=== PATIENT | female | born 1995 | race Caucasian/White ===

== ENCOUNTER 2021-06-21 09:00 | Outpatient (REF) | payer OTHER, SELFPAY ==
[2021-06-21 11:52] LABS: MANUAL DIFF FLAG NO
[2021-06-21 12:01] LABS: Basophils Percent Auto 0.3 % (0-2); Eosinophils Absolute Auto 0.1 X10*3/uL (0.0-0.4); Eosinophils Percent Auto 0.9 % (0-4); Hematocrit 38.4 % (37-47); Hemoglobin 12.8 g/dl (12.0-16.0); Imm Gran Abs Auto 0.01 X10*3/uL (0.00-0.03); Imm Gran Pct Auto 0.1 % (0.0-0.4); Lymphocytes Absolute Auto 1.9 X10*3/uL (1.2-4.9); Mean Corpuscular HGB Conc 33.3 g/dl (31.0-35.0); Mean Corpuscular Volume 86.9 fL (80-98); Mean Platelet Volume 12.9 fL (9.4-12.3); Monocytes Absolute Auto 0.5 X10*3/uL (0.1-1.2); Monocytes Percent Auto 6.5 % (2-11); Neutrophils Absolute Auto 5.4 X10*3/uL (2.0-8.3); Neutrophils Percent Auto 68.2 % (45-73); Platelet Count 113 X10*3/uL (160-400); Red Blood Count 4.42 X10*6/uL (4.20-5.50); Red Cell Distribution Width 12.8 % (11.0-16.0); White Blood Count 7.9 X10*3/uL (4.8-10.8)
[2021-06-21 12:02] LABS: Appearance Urine HAZY; Color Urine YELLOW; Glucose Urine UA NEG (NEG); Leukocyte Esterase Urine 1+ (NEG); Nitrite Urine NEG (NEG); Urine Blood NEG (NEG); Urine Ketones NEG (NEG); Urine Protein NEG (NEG-TRACE)
[2021-06-21 12:31] LABS: Amorphous Sediment Urine 2+ /LPF; Bacteria Urine 2+ /LPF; Squamous Epithelial Cell Urine 3+ /LPF
[2021-06-21 12:32] LABS: RBC Urine 0 /HPF (0); WBC Urine 0 /HPF (0-4)
[2021-06-21 12:35] LABS: TSH reflex Free T4 1.02 uIU/mL (0.32-4.0)
[2021-06-21 12:39] LABS: Alanine Aminotransferase 17 U/L (0-31); Albumin Level 4.1 g/dL (3.5-5.0); Alkaline Phosphatase 38 U/L (39-117); Anion Gap 10 (12-20); Aspartate Amino Transferase 16 U/L (5-31); Bilirubin Total 0.9 mg/dL (0.0-1.0); Blood Urea Nitrogen 7 mg/dL (9-16); Carbon Dioxide 24 mmol/L (22-29); Chloride 107 mmol/L (96-108); Cholesterol 135 mg/dL; Estimated Glomerular Filt Rate > 60; Glucose Fasting 84 mg/dL (60-99); HDL Cholesterol 49 mg/dL; LDL Cholesterol Calculated 74 mg/dl; Potassium 4.3 mmol/L (3.3-5.1); Sodium 137 mmol/L (135-145); Triglycerides 60 mg/dL
== END 2021-06-21 09:01 | disposition home or self-care (01) ==
LOC: HO.WFDLDS 09:00
PROVIDERS: Visit Provider Family Medicine
DX: Z00.00 Encounter for general adult medical examination without abnormal findings (principal)
CPT/HCPCS: 36415; 80053; 80061; 81001; 81003; 84443; 85025

== ENCOUNTER 2022-04-07 06:33 | Outpatient (REF) | payer OTHER, SELFPAY ==
--- NOTE | ~2022-04-07 | XR_ITS ---
EXAMINATION: XR KNEE, RIGHT CLINICAL INFORMATION: Right knee pain COMPARISON: None TECHNIQUE: AP and lateral views of the right knee. FINDINGS: Bones and soft tissues are normal. No fracture or joint effusion. Alignment is anatomic. Joint spaces are well maintained. No abnormal soft tissue calcification. XR/XR knee RT 2V IMPRESSION: Unremarkable right knee radiographs.
== END 2022-04-07 06:34 | disposition home or self-care (01) ==
LOC: HO.XRAY 06:33
PROVIDERS: PCP Hospitalist; Visit Provider Nurse Practitioner Family
DX: M25.561 Pain in right knee (principal)
CPT/HCPCS: 73560

== ENCOUNTER 2022-08-16 08:41 | Outpatient (REF) | payer OTHER, SELFPAY ==
[2022-08-16 11:26] LABS: Hematocrit 40.6 % (37.0-47.0); Hemoglobin 13.3 g/dl (12.0-16.0); Mean Corpuscular HGB Conc 32.8 g/dl (31.0-35.0); Mean Corpuscular Volume 88.5 fL (80.0-98.0); Mean Platelet Volume 12.3 fL (9.4-12.3); Platelet Count 134 X10*3/uL (160-400); Red Blood Count 4.59 X10*6/uL (4.20-5.50); Red Cell Distribution Width 12.3 % (11.0-16.0); White Blood Count 4.7 X10*3/uL (4.8-10.8)
[2022-08-16 12:00] LABS: Alanine Aminotransferase 20 U/L (0-31); Albumin Level 4.6 g/dL (3.5-5.0); Alkaline Phosphatase 92 U/L (39-117); Anion Gap 14 (12-20); Aspartate Amino Transferase 20 U/L (5-31); Bilirubin Total 0.5 mg/dL (0.0-1.0); Blood Urea Nitrogen 12 mg/dL (9-16); Calcium 9.2 mg/dL (8.4-10.2); Carbon Dioxide 26 mmol/L (22-29); Chloride 105 mmol/L (96-108); Cholesterol 136 mg/dL; Estimated Glomerular Filt Rate > 60; Glucose Fasting 85 mg/dL (60-99); HDL Cholesterol 56 mg/dL; LDL Cholesterol Calculated 73 mg/dl; Magnesium 2.1 mg/dL (1.6-2.6); Potassium 4.2 mmol/L (3.3-5.1); Sodium 141 mmol/L (135-145); Total Protein 7.4 g/dL (6.5-8.0); Triglycerides 39 mg/dL
[2022-08-16 12:19] LABS: Folate 12.6 ng/mL (> or = 4.0); Vitamin B12 374 pg/mL (200-900)
[2022-08-23 15:34] LABS: Vitamin D 25-OH, D2 <4 ng/mL; Vitamin D 25-OH, D3 28 ng/mL; Vitamin D 25-OH, Total 28 ng/mL (30-100)
== END 2022-08-16 08:42 | disposition home or self-care (01) ==
LOC: HO.WFDLDS 08:41
PROVIDERS: Visit Provider Hospitalist
DX: Z00.00 Encounter for general adult medical examination without abnormal findings (principal); G43.909 Migraine, unspecified, not intractable, without status migrainosus
CPT/HCPCS: 36415; 80053; 80061; 82306; 82607; 82746; 83735; 85027

== ENCOUNTER 2022-10-03 10:36 | Outpatient (REF) | payer OTHER, SELFPAY ==
[2022-10-03 14:01] LABS: MANUAL DIFF FLAG NO
[2022-10-03 14:11] LABS: Basophils Percent Auto 0.3 % (0-2); Eosinophils Absolute Auto 0.2 X10*3/uL (0.0-0.4); Eosinophils Percent Auto 2.1 % (0-4); Hematocrit 40.3 % (37.0-47.0); Hemoglobin 13.2 g/dl (12.0-16.0); Imm Gran Abs Auto 0.02 X10*3/uL (0.00-0.03); Imm Gran Pct Auto 0.3 % (0.0-0.4); Lymphocytes Absolute Auto 2.1 X10*3/uL (1.2-4.9); Lymphocytes Percent Auto 27.5 % (20-40); Mean Corpuscular HGB Conc 32.8 g/dl (31.0-35.0); Mean Corpuscular Hemoglobin 29.1 pg (27.0-33.0); Mean Corpuscular Volume 88.8 fL (80.0-98.0); Mean Platelet Volume 12.3 fL (9.4-12.3); Monocytes Absolute Auto 0.6 X10*3/uL (0.1-1.2); Monocytes Percent Auto 7.3 % (2-11); Neutrophils Absolute Auto 4.8 x10*3/uL (2.0-8.3); Neutrophils Percent Auto 62.5 % (45-73); Platelet Count 153 X10*3/uL (160-400); Red Blood Count 4.54 X10*6/uL (4.20-5.50); White Blood Count 7.7 X10*3/uL (4.8-10.8)
[2022-10-03 15:03] LABS: Erythrocyte Sedimentation Rate 7 MM/HR (0-20)
[2022-10-03 15:33] LABS: Anion Gap 11 (12-20); Blood Urea Nitrogen 9 mg/dL (9-16); Calcium 9.5 mg/dL (8.4-10.2); Carbon Dioxide 27 mmol/L (22-29); Chloride 106 mmol/L (96-108); Estimated Glomerular Filt Rate > 60; Glucose Random 85 mg/dL (60-115); Potassium 4.1 mmol/L (3.3-5.1); Sodium 140 mmol/L (135-145)
== END 2022-10-03 10:37 | disposition home or self-care (01) ==
LOC: HO.WFDLDS 10:36
PROVIDERS: Visit Provider Family Medicine
DX: Z00.00 Encounter for general adult medical examination without abnormal findings (principal); M25.531 Pain in right wrist
CPT/HCPCS: 36415; 80048; 85025; 85652

== ENCOUNTER 2022-10-07 07:14 | Outpatient (REF) | payer OTHER, SELFPAY ==
--- NOTE | ~2022-10-07 | XR_ITS ---
EXAMINATION: XR WRIST, RIGHT CLINICAL INFORMATION: Pain. COMPARISON: None TECHNIQUE: PA, lateral, and oblique views of the right wrist, together with a dedicated navicular view. FINDINGS: The bones and soft tissues are normal. No fracture. Alignment is anatomic with normal joint spaces. No erosions or abnormal soft tissue calcifications. XR/XR wrist RT 2V IMPRESSION: Normal right wrist.
== END 2022-10-07 07:15 | disposition home or self-care (01) ==
LOC: HO.XRAY 07:14
PROVIDERS: PCP Hospitalist; Visit Provider Family Medicine
DX: M25.531 Pain in right wrist (principal)
CPT/HCPCS: 73100

== ENCOUNTER 2022-12-14 10:30 | Outpatient (RCR) | payer OTHER, SELFPAY ==
--- NOTE | 2022-11-15 14:06 | MHC.OT.EP ---
[address] [phone] Occupational Therapy Plan of Care Patient Name: Jose Antonio Bhatti Date of Evaluation: 11/15/22 Diagnosis: Right De Quervains Pain Location: Right radial wrist, mild at rest Pain Score: 4 Pain Scale Used: Numeric (0 - 10) Aggravating Factors: Lifting, writing, stirring, lifting children Alleviating Factors: Ice, orthosis, ibuprophen helps while being used but no carry over, trying to rest Assessment: 27 yo right hand dominant female presents with persistent right radial wrist and thumb pain over the past eight months. She is the mother of four children, the youngest are two and 10 months, and she carries the majority of homecare for the family. She reports her pain is primarily over the right radial wrist and sometimes into the thumb, wakes her at night and gives her trouble with lifting her children and other objects, as well as writing and using utensils. 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 She has good range and strength, with no current sensory or coodination defitics. She is very receptive and motivated for therapy and will benefit from cont'd services for education on activity modification, joint protection and progression of functional strengthening for minimal pain and optimal daily participation. Frequency and Duration: The patient will be seen 2x/wk for 4 weeks Short Term Goals: Ind w/ AROM exercises Pt to report good follow through w/ trials for varying lifting techniques of smaller children Pt to demo good follow through w/ orthosis wear Ind w/ use of ice and heat appropriately for edema and comfort [facility] Goals: Progress to wrist strengthening exercises and CMC stabilization strengthening Pt to report ease w/ sleeping through modifications of positioning or w/ orthosis wear Pain free w/ moderate daily activities (laundry, dishes, cooking, etc) QuickDASH score <25 pts Treatment Plan: Therapeutic Exercise Therapeutic Activity Home Exercise Program Splinting Patient Education Edema Control ADL Training Ultrasound Iontophoresis Paraffin Fluidotherapy MHP Cold Packs Joint Mobilization Soft Tissue Mobilization Kinesiotaping Ionto w/ dexamethasone for De Quervains Electronically Signed By: Ruma Zapka, OTR/L CHT Please Sign and return to therapist. Thank you once again for your referral.
== END 2022-12-14 11:37 | disposition home or self-care (01) ==
LOC: HO.OT 10:30
PROVIDERS: PCP Hospitalist; Visit Provider Family Medicine
DX: M25.531 Pain in right wrist (principal)
CPT/HCPCS: 97033; 97110; 97140; 97165

== ENCOUNTER 2023-07-11 11:27 | Outpatient (AMB) | payer OTHER, SELFPAY ==
[2023-07-11 11:34] VITALS: BP 108/60; PULSE 80; RESP 13; TEMP 36.4; O2SAT 99; BMI 22.9
--- NOTE | 2023-07-11 11:34 | A.OFFPC_ITS ---
Vital Signs 07/11/23 11:34 Height 5 ft 2 in Weight 125 lb 4 oz BMI 22.9 BP 108/60 Blood Pressure Location Rt brachial Position Sitting Respiration 13 Pulse 80 Pulse Source Pulse Oximeter Temp 97.6 F Temp Source Temporal Artery Scan Pulse Oximetry (%) 99 Oxygen Delivery Method Room Air Intake Visit Reasons: Bump On Right Wrist Intake Note: Patient states that a year and a half ago it was just a painful hand at first but then the bump started growing. Patient states that she went Occupational Therapy and her hand started feeling better but the bump didnt go away. Patient states that now she doesnt have pain in her hands anymore but the bump on wrist causes sharp pain and soreness when moved or when patient has been resting. Measurement Specialist Required: No Accompanied by: Self / Same As Patient Allergies No Known Allergies [No Known Allergies*] Allergy (Verified 07/11/23 12:12) Medication List - Last Reconciled 07/11/23 by Alonso Mora CNP loratadine (Allergy Relief (loratadine)) 10 mg PO DAILY Tobacco use date assessed: 07/11/23 Dental Screening Dental Screen Date: 07/11/23 Did you have a dental visit in the last 12 months?: Yes Did you have a dental problem in the last 6 months where you did not have access to dental care?: No Was dental information given to patient?: Patient has dentist HPI HPI Comments History of Present Illness Details 27-year-old female presents with complai nts of a bump to her right wrist. She notes that the bump has been present for the past year and a half. She reports initial constant pain to her fingers which improved after series of occupational therapy sessions. However, she continues to experience intermittent pain to the bump. She notes that she had a cyst removed close to the present one when she was 13 years old. [facility] Medical History No pertinent past medical history Surgical History Delivery by section H/O dilation and curettage H/O right wrist surgery Social History Housing: House Alcohol intake: never Patient Tobacco Use Status: Never used Tobacco e-Cigarette/Vaping Use: Never Used Second Hand Smoke Exposure: No service: No Current occupational status: other Current occupation: stay at home mom Current occupational exposures/hazards: No Cognitive needs: Yes Hearing needs: No Vision needs: No Questionnaire Thrive Questionnaire Date Thrive assessed: 10/03/22 FABIAN-7 AMB Questionnaire FABIAN-7 Date FABIAN - 7 assessed: 10/03/22 Source: Developed by Drs. Otto Leo, Brianna Urias, Ar Dominguez and colleagues, with an educational rodrick from [employer]. Review of Systems Const Details: Const Denies chills, Denies fatigue, Denies fever(s), Denies headache(s) and Denies weakness ENT Denies dizziness and Denies headache(s) Card Denies chest pain, Denies lightheadedness, Denies dyspnea and Denies other (Palpitations) Resp Denies cough, Denies dyspnea, Denies wheezing and Denies other ( shortness of breath) GI Denies abdominal pain, Denies melena, Denies hematochezia, Denies change in bowel habits, Denies dyspepsia and Denies nausea Denies hematuria and Denies dysuria Musc Reports as per HPI Skin/Breast Reports as per HPI Neuro Denies abnormal gait, Denies dizziness, Denies headache(s), Denies memory loss, Denies numbness, Denies Sensory deficit (Neuro), Denies tingling and Denies weakness Psych Denies anxiety, Denies depression, Denies memory loss Endo Denies cold intolerance, Denies fatigue, Denies heat intolerance, Denies polydipsia and Denies polyuria Aller/Immun Denies wheezing Physical exam (Primary Care) Vital Signs: Last Vital Signs Temp 97.6 F 07/11/23 11:34 Pulse 80 07/11/23 11:34 Resp 13 07/11/23 11:34 BP 108/60 07/11/23 11:34 Pulse Ox 99 07/11/23 11:34 Oxygen Delivery Method Room Air 07/11/23 11:34 BMI result Body Mass Index 22.9 Tobacco/Smoking Status: Tobacco use Status Tobacco use date assessed 07/11/23 07/11/23 11:44 Patient Tobacco Use Status Never used Tobacco 07/11/23 11:44 e-Cigarette/Vaping Use Never Used 07/11/23 11:44 Thrive Assessment: Date of Thrive Assessment Date Thrive assessed 10/03/22 07/11/23 11:44 Const Other: General: no acute distress and well developed Nutritional Appearance: well nourished Orientation/consciousness: patient oriented x3 [facility] Head: Yes normocephalic and Yes atraumatic Eyes General: appearance normal, both eyes and all related structures Pupils: Equal, round and reactive pupils present EOM: EOMs intact bilaterally Resp Effort & Inspection: normal respiratory effort Auscultation: clear to auscultation bilaterally Cardio Rate: regular rate Rhythm: regular rhythm Heart sounds: S1 normal heart sound present, S2 normal heart sound present, no gallops, no murmurs and no rubs GI Palpation (GI): No Abdominal aortic bruit present, Soft to palpation, nontender, No hepatosplenomegaly present and No Rebound tenderness present Auscultation: normal bowel sounds General: Yes no CVA tenderness Back/Spine/Pelvis Back: no CVA tenderness Cervical Spine: cervical ROM normal and No Cervical spine tenderness Thoracic/Lumbar Spine: thoraco-lumbar ROM normal, No pain with thoraco-lumbar ROM, No thoracic spinal tenderness and No lumbar spinal tenderness Extrem General: Yes normal to inspection, No edema and No calf tenderness Round, firm, nontender lump palpated to the radius of the right wrist. No erythema, edema, trauma/injury, or overt signs of infection noted Skin General: warm and dry. Normal skin color. Normal skin turgor Lesions: lump to right wrist Rashes: no rashes Trauma: no lacerations or abrasions Wounds: no wounds Nails: normal Neuro General: patient oriented x3, gait normal and no focal neuro deficit Cranial nerves: Yes Equal, round and reactive pupils present Cognition (Neuro): normal cognition Gait exam (Neuro): Normal gait present Sensory Exam: No Sensory deficit (Neuro) Psych Appearance: grossly normal Affect: normal affect Attitude: cooperative Thought process: Normal thought process present Assessment and Plan Assessment & Plan (1) Ganglion cyst of volar aspect of right wrist: Code(s): M67.431 - Ganglion, right wrist Plan: Reports pain for bump to her right wrist for the past year and a half. Reports history of sees removal adjacent to current pump Round, firm, nontender lump palpated to the radius of the right wrist. No erythema, edema, trauma/injury, or overt signs of infection noted Likely ganglion cyst Referred to Hand surgery May take Tylenol ibuprofen for pain or discomfort Warm/cool compresses encouraged Return with worsening or new signs and symptoms Verbalized understanding and agreed with treatment plan. Orders: Referrals Hand Surgery Referral M67.431 - Ganglion, right wrist Coding Level of Care Code Est Pt Level 3 (50138) Diagnoses Ganglion cyst of volar aspect of right wrist M67.431
== END 2023-07-11 13:36 | disposition home or self-care (01) ==
PROVIDERS: PCP Nurse Practitioner Family; Visit Provider Nurse Practitioner Family
DX: M67.431 Ganglion, right wrist (principal)
CPT/HCPCS: 99213

== ENCOUNTER 2023-08-02 08:00 | Outpatient (RCR) | payer OTHER, SELFPAY ==
--- NOTE | 2023-06-28 10:47 | MHC.PT.EP ---
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 Pt exhibits positive upper limb tension testing and clustering of sx which are consistent with thoracic outlet syndrome. Pt expresses parathesias and cold sensation in her R UE upon elevation of her arm and expresses a constant low grade ache in her shoulder. She also has noted crepitus and would likely benefit from stabilization program. Pt has reported previous history of R OT for wrist sx which have not impacted her sx. Pt would benefit from a postural/cervical stretching program to address impairments. Of note pt also reports hx of heart palpations and history of lightheadedness which has been ongoing. She does express history of chest pain (none this date) but does express having it randomly at times. Pt was screened for orthostatic in the office this date upon completion of initial evaluation and was negative. Upon further inquiry pt states she was advised to undergo stress testing in the past from a previous provider (approximately 1-1.5 years ago) but never had this screening done after having her most recent child. She reports initiating a magnesium supplement on her own and verbalizes her palpitations have somewhat reduced in frequency. Pt will be seen in PT twice weekly x 4-6 weeks but would also likely benefit from a cardiac workup to exclude potential of vascular TOS vs neurogenic TOS due to positive screening with cardiac inquiry. Thank you for your referral. Frequency and Duration: The patient will be seen 2x/week x 4 weeks Short Term Goals: 1. Reduce presence of upper limb tension testing in the R UE. 2. Negative VALDO/Costo-clavicular TOS clustering special tests TOS. 3. Improve postural awareness with ADLS/IADLS. 4. Initiate strength periscap program. [employer]ending Machine [employer] Goals: 1. AROM R shoulder flexion to 170 degrees. 2. Strength R shoulder 5/5 all planes. 3. AROM IR to T12 on R UE. 4. Resume sleeping on R UE without sleep disturbance. Treatment Plan: Modalities to reduce pain, spasms and effusion. Manual therapy to restore motion and function. Therapeutic exercise to improve strength and flexibility. Neuromuscular re-education for posture and balance. Therapeutic activities to return to functional activities of daily living. Electronically signed by: Jory Herrera PT, DPT Please sign and return to therapist. Thank you for your referral.
== END 2023-10-16 13:26 | disposition home or self-care (01) ==
LOC: HO.PTWFD 08:00
PROVIDERS: PCP Nurse Practitioner Family; Visit Provider Nurse Practitioner Family
DX: M25.511 Pain in right shoulder (principal); G89.29 Other chronic pain
CPT/HCPCS: 97012; 97110; 97140; 97162; 97535

== ENCOUNTER 2023-08-17 09:49 | Outpatient (AMB) | payer OTHER, SELFPAY ==
--- NOTE | 2023-08-17 10:00 | MHC.OFFVIS ---
Intake Intake Visit Reasons: New Pt - Rt wrist pain Intake Note: Jose Antonio is a 28 year old right hand dominant female who presents today as a new patient for a evaluation of her right wrist pain. Hx of OT, 12/14/22 @ [facility]. Patient reports she noticed a lump on the volar aspect of the wrist about a year ago. She states she has a hx of tendonitis. Allergies No Known Allergies [No Known Allergies*] Allergy (Verified 08/17/23 10:02) HPI New Pt - Rt wrist pain HPI Details Jose Antonio is a 28 year old right hand dominant female who presents today as a new patient for a evaluation of her right wrist pain. Hx of OT, 12/14/22 @ [facility]. Patient reports she noticed a lump on the ulnar aspect of the volar wrist about a year ago. She states she has a hx of tendonitis. [facility] Medical History No pertinent past medical history Surgical History Delivery by section H/O dilation and curettage H/O right wrist surgery Social History Housing: House Alcohol intake: never Patient Tobacco Use Status: Never used Tobacco e-Cigarette/Vaping Use: Never Used Second Hand Smoke Exposure: No service: No Current occupational status: other Current occupation: stay at home mom Current occupational exposures/hazards: No Cognitive needs: Yes Hearing needs: No Vision needs: No Review of Systems Const All systems reviewed & are unremarkable except as noted in HPI and below Physical Exam Const General: cooperative, healthy appearing and no acute distress Resp Effort & Inspection: normal respiratory effort and able to speak in complete sentences Cardio Rate: regular rate Peripheral pulses: Peripheral pulses 2+ throughout GI Palpation (GI): Soft to palpation Skin Lesions: no lesions Rashes: no rashes Extrem Other: Right hand mild tenderness to palpation over the volar aspect of the ulna.There is a prior surgical scare from previous ganglion cyst removal on the volar aspect of the distal radius. There is a firm nodular area at the distal ulna which is not mobile and difficult to differentiate if this is what the patient claims is a cyst vs the ulnar styloid. Full wrist and hand ROM. Sensation intact. Radial pulse intact. Assessment & Plan Assessment & Plan (1) Ganglion cyst of volar aspect of right wrist: Code(s): M67.431 - Ganglion, right wrist Plan Ms. Bhatti is a 28 yo right hand dominant female who presents today as a new patient for a evaluation of her right wrist pain. Hx of OT, 12/14/22 @ [facility]. Patient reports she noticed a lump on the ulnar aspect of the volar wrist about a year ago. She states she has a hx of tendonitis. X-rays obtained in the office are reviewed by me, Alice Matthew PA-C, and are negative for any acute fracture or dislocation. I have ordered an MRI to further evaluate the hard nodule the patient describes on the ulnar aspect of the wrist. She will f/u after MRI, sooner if needed. Orders: Orders XR wrist RT min 3V Today M25.539 - Pain in unspecified wrist MR wrist RT wo con Today M67.431 - Ganglion, right wrist Coding Level of Care Code New Pt Level 4 (59427) Diagnoses Ganglion cyst of volar aspect of right wrist M67.431
== END 2023-08-17 11:22 | disposition home or self-care (01) ==
PROVIDERS: PCP Nurse Practitioner Family; Visit Provider Physician Assistant
DX: M67.431 Ganglion, right wrist (principal)
CPT/HCPCS: 99203

== ENCOUNTER 2023-08-17 09:49 | Outpatient (REF) | payer OTHER, SELFPAY ==
--- NOTE | ~2023-08-17 | XR_ITS ---
EXAMINATION: XR WRIST, RIGHT CLINICAL INFORMATION: Pain COMPARISON: None available. TECHNIQUE: PA, lateral, and oblique views of the right wrist. FINDINGS: The bones and soft tissues are normal. No fracture. Alignment is anatomic with normal joint spaces. No erosions or abnormal soft tissue calcifications. XR/XR wrist RT min 3V IMPRESSION: Normal right wrist.
== END 2023-08-17 09:50 | disposition home or self-care (01) ==
LOC: HO.HOSX 09:49
PROVIDERS: PCP Nurse Practitioner Family; Visit Provider Physician Assistant
DX: M67.431 Ganglion, right wrist (principal)
CPT/HCPCS: 73110; 99202

== ENCOUNTER 2023-08-20 07:58 | Outpatient (AMB) | payer OTHER, SELFPAY ==
--- NOTE | 2023-08-20 08:04 | A.OFFPC_ITS ---
Vital Signs 08/20/23 08:06 Height 5 ft 2 in Weight 127 lb 2 oz BMI 23.2 BP 112/60 Blood Pressure Location Lt brachial Position Sitting Respiration 13 Pulse 89 Pulse Source Pulse Oximeter Pulse Oximetry (%) 99 Oxygen Delivery Method Room Air Intake Visit Reasons: PE, transfer of care Intake Note: Patient reports she is here for her physical and she has no concerns at this time. Morning News Anchor Required: No Accompanied by: Self / Same As Patient Allergies No Known Allergies [No Known Allergies*] Allergy (Verified 08/20/23 08:38) Medication List - Last Reconciled 08/20/23 by Alonso Mora CNP loratadine (Allergy Relief (loratadine)) 10 mg PO DAILY Tobacco use date assessed: 08/20/23 Dental Screening Dental Screen Date: 08/20/23 Did you have a dental visit in the last 12 months?: Yes Did you have a dental problem in the last 6 months where you did not have access to dental care?: No Was dental information given to patient?: Patient has dentist HPI HPI Comments History of Present Illness Details 28-year-old female presents for transfer of care Her former PCP is who is no longer with the practice She has history of migraine and musculoskeletal pain She is on loratadine She offers no complaints and denies acute symptoms at this time She notes that she sexually active, in a monogamous relationship, and has no concerns for STD She notes that she goes for an annual exam to her [facility]. She does not recall her last Pap smear test [facility] Medical History No pertinent past medical history Surgical History Delivery by section H/O dilation and curettage H/O right wrist surgery Social History (Updated 08/20/23 @ 08:12 by Cass Rios CMA) Household Members: Family Housing: House Alcohol intake: never Patient Tobacco Use Status: Never used Tobacco e-Cigarette/Vaping Use: Never Used Second Hand Smoke Exposure: No Use of substances other than those prescribed or required for medical reasons: No Have you been hit, kicked, punched, or otherwise hurt by someone within the past year? If so, by whom?: No Do you feel safe in your current relationship?: Yes Is there a partner from a previous relationship who is making you feel unsafe now?: No Are you made to feel afraid or neglected: No service: No Current occupational status: other Current occupation: stay at home mom Current occupational exposures/hazards: No Sexual orientation: Unable to collect Gender identity: Unable to collect Cognitive needs: No Hearing needs: No Vision needs: No Questionnaire PHQ-9 Over the last 2 weeks, how often have you been bothered by any of the following problems? 1. Little interest or pleasure in doing things: not at all 2. Feeling down, depressed, or hopeless: not at all 3. Trouble falling or staying asleep, or sleeping too much: not at all 4. Feeling tired or having little energy: not at all 5. Poor appetite or overeating: not at all 6. Feeling bad about yourself - or that you are a failure or have let yourself or your family down: not at all 7. Trouble concentrating on things, such as reading the newspaper or watching television: not at all 8. Moving or speaking so slowly that other people could have noticed. Or the opposite - being so fidgety or restless that you have been moving around a lot more than usual: not at all 9. Thoughts that you would be better off or of hurting yourself in some way: not at all Total score: 0 Depression Screening Interpretation: Negative Depression Screening Done: Yes 28432 - PHQ-9 Billing: Yes Source: Developed by Drs. Otto Leo, Brianna Urias, Ar Dominguez and colleagues, with an educational rodrick from [place]. Thrive Questionnaire Date Thrive assessed: 08/20/23 I am a: Patient What is your living situation today?: I have a steady place to live Within the past 12 months, did the food you bought not last and you didn't have the money to get more?: Never true Within the past 12 months, did you worry whether your food would run out before you got money to buy more?: Never true Do you have trouble paying for medicines?: No Do you have trouble getting transportation to medical appointments?: No Do you have trouble paying your heating and electricity bill?: No Do you have trouble taking care of your child, family member or friend?: No Do you have trouble with day-to-day activities such as bathing, preparing meals, shopping, managing finances, etc.?: No Are you currently unemployed and looking for a job?: No Are you interested in more education?: No Please select the resources that you would like help with: None Currently or been in a relationship where the following occur: no concerns reported AUDIT C Alcohol Use Questionnaire (AUDIT-C) 1. How often do you have a drink containing alcohol?: Never 3. How often do you have six or more drinks on one occasion?: Never Total Score: 0 FABIAN-7 AMB Questionnaire FABIAN-7 Date FABIAN - 7 assessed: 08/20/23 Feeling nervous, anxious, or on edge: 0 = Not at all Not being able to stop or control worryin = Not at all Worrying too much about different things: 0 = Not at all Trouble relaxin = Not at all Being so restless that it is hard to sit still: 0 = Not at all Becoming easily annoyed or irritable: 0 = Not at all Feeling afraid as if something awful might happen: 0 = Not at all Total FABIAN-7 score (0-4 normal; 5-9 mild; 10-14 moderate; 15-21 severe): 0 Source: Developed by Drs. Otto Leo, Brianna Urias, Ar Dominguez and colleagues, with an educational rodrick from [place]. FABIAN-7 Assessment Billing FABIAN-7 Assessment Tool: FABIAN-7 Assessment 96482 Review of Systems Const Details: Denies chills, Denies fatigue, Denies fever(s), Denies headache(s) and Denies weakness HEENT Denies change in vision, Denies dizziness, Denies headache(s), Denies hearing loss, Denies nasal congestion, Denies sinus pain, Denies sinus pressure and Denies sore throat Card Denies chest pain, Denies lightheadedness, Denies dyspnea and Denies other (palpitations) Resp Denies cough, Denies dyspnea and Denies wheezing GI Denies abdominal pain, Denies melena, Denies hematochezia, Denies change in bowel habits, Denies dyspepsia and Denies nausea Denies hematuria and Denies dysuria Musc Denies abnormal gait, Denies myalgias, Denies arthralgias, Denies numbness and Denies tingling Skin/Breast Denies rash, Denies unusual bruising and Denies wounds Neuro Denies abnormal gait, Denies dizziness, Denies headache(s), Denies memory loss, Denies numbness, Denies Sensory deficit (Neuro), Denies tingling and Denies weakness Psych Denies anxiety, Denies depression and Denies memory loss Endo Denies cold intolerance, Denies fatigue, Denies heat intolerance, Denies polydipsia and Denies polyuria Elian/Lymph Denies easy bleeding and Denies easy bruising Aller/Immun Denies wheezing Physical exam (Primary Care) Vital Signs: Last Vital Signs Pulse 89 08/20/23 08:06 Resp 13 08/20/23 08:06 BP 112/60 08/20/23 08:06 Pulse Ox 99 08/20/23 08:06 Oxygen Delivery Method Room Air 08/20/23 08:06 BMI result Body Mass Index 23.2 Tobacco/Smoking Status: Tobacco use Status Tobacco use date assessed 08/20/23 08/20/23 08:13 Patient Tobacco Use Status Never used Tobacco 08/20/23 08:12 e-Cigarette/Vaping Use Never Used 08/20/23 08:12 PHQ-9: PHQ-9 Score PHQ-9: Total score 0 08/20/23 08:14 Depression Screening Interpretation: Negative Thrive Assessment: Date of Thrive Assessment Date Thrive assessed 08/20/23 08/20/23 08:14 Currently or been in a relationship where the following occur: no concerns reported Const Other: General: no acute distress, well developed, alert and awake Nutritional Appearance: well nourished Orientation/consciousness: patient oriented x3 HENMT Head: Yes normocephalic and Yes atraumatic Ears: hearing grossly normal bilaterally and TM's normal bilaterally General nose exam: Normal external nose present and Normal nares present Mouth: Normal oral and palatal mucosa present and moist mucous membranes Teeth and gingiva: dentition normal Throat: Yes oropharynx normal Eyes Pupils: Equal, round and reactive pupils present and Pupil accommodation reflex normal EOM: EOMs intact bilaterally Neck Neck: Yes normal visual inspection, Yes no lymphadenopathy and Yes trachea midline Thyroid: Thyroid normal Carotids: no bruits Lymphatic: no lymphadenopathy noted Chest Chest palpation & inspection: normal inspection of the chest Resp Effort & Inspection: normal respiratory effort Auscultation: clear to auscultation bilaterally Cardio Rate: regular rate Rhythm: regular rhythm Heart sounds: S1 normal heart sound present, S2 normal heart sound present, no gallops, no murmurs and no rubs Bruits: no abdominal aortic bruits and no carotid bruits GI Palpation (GI): No Abdominal aortic bruit present, Soft to palpation, nontender, No hepatosplenomegaly present and No Rebound tenderness present Auscultation: normal bowel sounds General: Yes no CVA tenderness Back/Spine/Pelvis Back: no CVA tenderness Cervical Spine: cervical ROM normal and No Cervical spine tenderness Thoracic/Lumbar Spine: thoraco-lumbar ROM normal, No pain with thoraco-lumbar ROM, No thoracic spinal tenderness and No lumbar spinal tenderness Skin General: warm and dry. Normal skin color. Normal skin turgor Lesions: Numerous moles to her neck Rashes: no rashes Trauma: no lacerations or abrasions Wounds: no wounds Nails: normal Neuro General: patient oriented x3, gait normal and CN's II-XI intact bilaterally Cranial nerves: Yes Equal, round and reactive pupils present Cognition (Neuro): normal cognition Gait exam (Neuro): Normal gait present Motor exam (neuro): 5/5 motor strength present throughout Sensory Exam: No Sensory deficit (Neuro) Deep tendon reflexes (DTR's): Right patellar reflex intensity grade: 2+ and Left patellar reflex intensity grade: 2+ Extrem General: Yes normal to inspection, No edema and No calf tenderness Psych Appearance: grossly normal Affect: normal affect Attitude: cooperative Thought process: Normal thought process present Assessment and Plan Assessment & Plan (1) Annual physical exam: Code(s): Z00.00 - Encounter for general adult medical examination without abnormal findin gs Plan: Normal physical exam of a 28-year-old female No significant physical restrictions or limitations noted Advised to get fasting blood work done and schedule a telehealth visit for labs review Return with symptoms or concerns Verbalized understanding and agreed with treatment plan (2) Numerous moles: Code(s): D22.9 - Melanocytic nevi, unspecified Plan: Numerous moles to her neck (3) Laboratory tests ordered as part of a complete physical exam (CPE): Code(s): Z00.00 - Encounter for general adult medical examination without abnormal findings Plan: Fasting labs ordered as part of a complete physical exam. Advised to fast for at least 10 hours before getting labs drawn. May drink water Verbalized understanding and agreed with treatment plan. Orders: Orders Complete Blood Count Auto Diff Today Z00.00 - Encounter for general adult medical examination without abnormal findings Lipid Panel Today Z00.00 - Encounter for general adult medical examination without abnormal findings TSH reflex Free T4 Today Z00.00 - Encounter for general adult medical examination without abnormal findings UA CC w/rflx Micro + Cult Today Z00.00 - Encounter for general adult medical examination without abnormal findings Comprehensive [place]. Panel Fast Today Z00.00 - Encounter for general adult medical examination without abnormal findings Coding Level of Care Code Est Pt Prev Care [id number]([id number]) Diagnoses Annual physical exam Z00.00 Numerous moles D22.9 Laboratory tests ordered as part of a complete physical exam (CPE) Z00.00 Additional Codes FABIAN-7 Assessment Billing - FABIAN-7 Assessment Tool: FABIAN-7 Assessment [id number] ([id number])
[2023-08-20 08:06] VITALS: BP 112/60; PULSE 89; RESP 13; O2SAT 99; BMI 23.2
== END 2023-08-20 09:03 | disposition home or self-care (01) ==
PROVIDERS: PCP Nurse Practitioner Family; Visit Provider Nurse Practitioner Family
DX: Z00.00 Encounter for general adult medical examination without abnormal findings (principal); D22.9 Melanocytic nevi, unspecified
CPT/HCPCS: 99395

== ENCOUNTER 2023-08-22 07:03 | Outpatient (REF) | payer OTHER, SELFPAY ==
[2023-08-22 11:17] LABS: MANUAL DIFF FLAG NO
[2023-08-22 11:19] LABS: Appearance Urine Clear; Color Urine Yellow; Glucose Urine UA Negative (Negative); Leukocyte Esterase Urine Trace (Negative); Nitrite Urine Negative (Negative); PH 5.5 (5.0-9.0); Specific Gravity - Urine 1.025 (1.005-1.025); UMIC TRIGGER UACC YES; Urine Blood Negative (Negative); Urine Ketones Negative (Negative); Urine Protein Negative (Neg-Trace)
[2023-08-22 11:25] LABS: Basophils Percent Auto 0.3 % (0-2); Eosinophils Absolute Auto 0.1 X10*3/uL (0.0-0.4); Eosinophils Percent Auto 1.7 % (0-4); Hemoglobin 13.2 g/dl (12.0-16.0); Imm Gran Abs Auto 0.02 X10*3/uL (0.00-0.03); Imm Gran Pct Auto 0.3 % (0.0-0.4); Lymphocytes Percent Auto 26.3 % (20-40); Mean Corpuscular Hemoglobin 29.2 pg (27.0-33.0); Mean Corpuscular Volume 88.5 fL (80.0-98.0); Monocytes Absolute Auto 0.5 X10*3/uL (0.1-1.2); Monocytes Percent Auto 7.2 % (2-11); Neutrophils Absolute Auto 4.8 x10*3/uL (2.0-8.3); Neutrophils Percent Auto 64.2 % (45-73); Platelet Count 119 X10*3/uL (160-400); Red Blood Count 4.52 X10*6/uL (4.20-5.50); Red Cell Distribution Width 12.2 % (11.0-16.0); White Blood Count 7.5 X10*3/uL (4.8-10.8)
[2023-08-22 11:26] LABS: Bacteria Urine None Seen (None Seen); Hyaline Casts Urine 0-2 /LPF (0-2); RBC Urine 0-2 /HPF (0-2); WBC Urine 0-5 /HPF (0-5)
[2023-08-22 11:45] LABS: Alanine Aminotransferase 40 U/L (0-31); Albumin Level 4.3 g/dL (3.5-5.0); Alkaline Phosphatase 49 U/L (39-117); Anion Gap 11 (12-20); Aspartate Amino Transferase 25 U/L (5-31); Bilirubin Total 0.9 mg/dL (0.0-1.0); Blood Urea Nitrogen 15 mg/dL (9-16); Calcium 9.1 mg/dL (8.4-10.2); Carbon Dioxide 26 mmol/L (22-29); Chloride 106 mmol/L (96-108); Cholesterol 157 mg/dL (<200); Estimated Glomerular Filt Rate > 60; Glucose Fasting 87 mg/dL (60-99); HDL Cholesterol 49 mg/dL (>40); LDL Cholesterol Calculated 93 mg/dL (<100); Potassium 3.8 mmol/L (3.3-5.1); Sodium 139 mmol/L (135-145); Total Protein 7.3 g/dL (6.5-8.0); Triglycerides 76 mg/dL (<150)
[2023-08-22 11:53] LABS: TSH reflex Free T4 1.45 uIU/mL (0.32-4.0)
== END 2023-08-22 07:04 | disposition home or self-care (01) ==
LOC: HO.WFDLDS 07:03
PROVIDERS: Visit Provider Nurse Practitioner Family
DX: Z00.00 Encounter for general adult medical examination without abnormal findings (principal)
CPT/HCPCS: 36415; 80053; 80061; 81001; 84443; 85025

== ENCOUNTER 2023-09-11 14:56 | Outpatient (AMB) | payer OTHER, SELFPAY ==
--- NOTE | 2023-09-11 14:53 | A.OFFPC_ITS ---
Intake Visit Reasons: labs review Allergies No Known Allergies [No Known Allergies*] Allergy (Verified 09/11/23 14:54) Tobacco use date assessed: 08/20/23 HPI HPI Comments History of Present Illness Details This is a telephonic telehealth visit for review of recent blood work Patient transferred care 3 weeks ago and had routine labs ordered She offers no complaints and denies acute symptoms PFSH Medical History No pertinent past medical history Surgical History Delivery by section H/O dilation and curettage H/O right wrist surgery Social History (Updated 08/20/23 @ 08:12 by Cass Rios CMA) Household Members: Family Housing: House Alcohol intake: never Patient Tobacco Use Status: Never used Tobacco e-Cigarette/Vaping Use: Never Used Second Hand Smoke Exposure: No service: No Current occupational status: other Current occupation: stay at home mom Current occupational exposures/hazards: No Sexual orientation: Unable to collect Gender identity: Unable to collect Cognitive needs: No Hearing needs: No Vision needs: No Questionnaire Thrive Questionnaire Date Thrive assessed: 08/20/23 FABIAN-7 AMB Questionnaire FABIAN-7 Date FABIAN - 7 assessed: 08/20/23 Source: Developed by Drs. Otto Leo, Brianna Urias, Ar Dominguez and colleagues, with an educational rodrick from [place]. Review of Systems Const Details: Const Denies chills, Denies fatigue, Denies fever(s), Denies headache(s) and Denies weakness ENT Denies dizziness and Denies headache(s) Card Denies chest pain, Denies lightheadedness, Denies dyspnea and Denies other (Palpitations) Resp Denies cough, Denies dyspnea, Denies wheezing and Denies other ( shortness of breath) GI Denies abdominal pain, Denies melena, Denies hematochezia, Denies change in bowel habits, Denies dyspepsia and Denies nausea Denies hematuria and Denies dysuria Musc Denies abnormal gait, Denies myalgias, Denies arthralgias, Denies numbness and Denies tingling Skin/Breast Denies rash, Denies unusual bruising and Denies wounds Neuro Denies abnormal gait, Denies dizziness, Denies headache(s), Denies memory loss, Denies numbness, Denies Sensory deficit (Neuro), Denies tingling and Denies weakness Psych Denies anxiety, Denies depression, Denies memory loss Endo Denies cold intolerance, Denies fatigue, Denies heat intolerance, Denies polydipsia and Denies polyuria Aller/Immun Denies wheezing Physical exam (Primary Care) Tobacco/Smoking Status: Tobacco use Status Tobacco use date assessed 08/20/23 09/11/23 14:53 Patient Tobacco Use Status Never used Tobacco 09/11/23 14:53 e-Cigarette/Vaping Use Never Used 09/11/23 14:53 Thrive Assessment: Date of Thrive Assessment Date Thrive assessed 08/20/23 09/11/23 14:53 Const Other: Telehealth visit. No physical exam Telehealth Telehealth Location of provider rendering services: practice address Location of patient: address on file Patient Identification confirmed using: Name, : Yes Telehealth method: voice only Patient verbally consented to treatment: Yes Patient verbally consented to billing insurance company: Yes Patient informed of any privacy concerns related to visit: Yes Assessment and Plan Assessment & Plan (1) Thrombocytopenia: Code(s): D69.6 - Thrombocytopenia, unspecified Plan: Current platelet count is 119. She has history of low platelet count She notes that she was evaluated by Hematology in [place] twice and was told her platelet counts run low and that she had no underlying issues Will continue to monitor Advised to schedule her next extended physical exam for next year Follow-up with symptoms or concerns Verbalized understanding and agreed with the plan (2) Elevated ALT measurement: Code(s): R74.01 - Elevation of levels of liver transaminase levels Plan: ALT slightly elevated, 40 No history of alcohol intake. She is not obese Unlikely fatty liver disease Will recheck liver panel. Advised to fast for 10-12 hours before getting blood work done. Will review results and make changes as needed Verbalized understanding and agreed with the plan Orders: Orders Liver Panel Today R74.01 - Elevation of levels of liver transaminase levels Coding Level of Care Code Tele Est Pt Level 2 (96362) Diagnoses Thrombocytopenia D69.6 Elevated ALT measurement R74.01 Time Spent (min) 10
== END 2023-09-11 16:45 | disposition home or self-care (01) ==
LOC: HO.HMGFM 14:56
PROVIDERS: PCP Nurse Practitioner Family; Visit Provider Nurse Practitioner Family
DX: D69.6 Thrombocytopenia, unspecified (principal); R74.01 Elevation of levels of liver transaminase levels
CPT/HCPCS: 99212